=== PATIENT | female | born 1975 | race Caucasian/White ===

== ENCOUNTER 2019-04-29 09:20 | Emergency (ER) | payer OTHER ==
--- OUTSIDE RECORDS SUMMARY | 2019-04-29 09:26 | XMS REPORT | Summary of Care ---
:1975 Author Organization [facility] Address [address] [facility] [place] [address] Care Team Providers Name Role Phone Ezequiel Montanez MD Primary Care Provider Reason for Referral MRI/CAT/PET Scan (Routine) Status Reason Specialty Diagnoses / Referred By Referred To Procedures Contact Contact Pending Review Diagnoses Pelvic joint pain, right [place] Stone, Procedures US PELVIC COMPLETE WITH EV PROBE STONE DECORATOR [address] [id number] Reason for Visit Reason Comments Hip Pain pt states pain in right hip on and off for a year with some lower abd pain. also states lump in right side groing area for 1 week Encounter Details Date Type Department Care Team Description 04/14/2019 Office Visit [facility] Marcum, Pelvic joint pain, right (Primary Dx); Practice STONE DECORATOR Other migraine without status migrainosus, not intractable [address] [place] [address] [phone] Allergies Active Allergy Reactions Severity Noted Date Comments Bee Sting Swelling 07/02/2017 Sulfa Antibiotics GI Reaction 03/12/2015 documented as of this encounter (statuses as of 04/14/2019) Medications Medication Sig Dispensed Refills Start Date End Date Status ibuprofen (MOTRIN) Take 600 mg 0 Active 600 MG Oral Tab by mouth EVERY SIX HOURS NEEDED. ALPRAZolam (XANAX) Take 1 Tab 30 Tab 0 02/13/2019 Active 0.25 MG Oral by mouth TabIndications: THREE TIMES Panic attacks DAILY NEEDED (panic and anxiety). cyclobenzaprine Take 1 Tab 30 Tab 1 03/04/2019 Active (FLEXERIL) 10 MG by mouth Oral TabIndications: THREE TIMES Left-sided thoracic DAILY back pain, NEEDED unspecified (pain). chronicity sumatriptan Take 1 Tab 18 Tab 0 04/14/2019 Active (IMITREX) 100 MG by mouth Oral TabIndications: TWO TIMES Other migraine DAILY without status NEEDED migrainosus, not (headache). intractable esomeprazole Take 40 mg 0 Discontinued magnesium (NEXIUM) by mouth 9 40 MG Oral CAPSULE DAILY DELAYED RELEASE NEEDED. sumatriptan Take 1 Tab 18 Tab 5 06/28/2018 Discontinued (IMITREX) 100 MG by mouth 9 (Reorder) Oral Tab TWO TIMES DAILY NEEDED (headache). Lorcaserin HCl ER Take 1 Tab 30 Tab 4 02/13/2019 Discontinued (BELVIQ XR) 20 MG by mouth 9 Oral TABLET SR 24 DAILY. Max HRIndications: BMI Daily 28.0-28.9,adult Amount: 1 Tab. documented as of this encounter (statuses as of 04/14/2019) Active Problems Problem Noted Date BMI 29.0-29.9,adult 06/09/2016 History of tobacco use 12/25/2008 Overview: Quit apr 2013 Panic attacks documented as of this encounter (statuses as of 04/14/2019) Resolved Problems Problem Noted Date Resolved Date Anxiety 06/20/2013 documented as of this encounter (statuses as of 04/14/2019) Immunizations Name Administration Dates Next Due Influenza (IM) Preservative Free 06/28/2018 Influenza (IM) W/Pres 08/17/2017 Varicella Vaccine Live 06/20/2013 documented as of this encounter Social History Tobacco Use Types Packs/Day Years Used Date Current Every Day Smoker Cigarettes 0.25 5 Quit: 02/27/2014 Smokeless Tobacco: Never Used Alcohol Use Drinks/Week oz/Week Comments No occasionally Sex Assigned at Date Recorded Not on file Job Start Date Occupation Industry Not on file Not on file Not on file Travel History Travel Start Travel End No recent travel history available. documented as of this encounter Last Filed Vital Signs Vital Sign Reading Time Taken Comments Blood Pressure 124/78 04/14/2019 10:47 AM EDT Pulse 87 04/14/2019 10:47 AM EDT Temperature 36.7 04/14/2019 10:47 AM EDT C (98.1 F) Respiratory Rate - - Oxygen Saturation 98% 04/14/2019 10:47 AM EDT Inhaled Oxygen Concentration - - Weight 73.5 kg (162 lb) 04/14/2019 10:47 AM EDT Height 160 cm (5' 3") 04/14/2019 10:47 AM EDT Body Mass Index 28.7 04/14/2019 10:47 AM EDT documented in this encounter Patient Instructions Patient InstructionsShawnee Stone FNP - 04/14/2019 10:40 AM EDTMoist heat to groin may help Ibuprofen up to 3 pills 3 times a day with food for pain Schedule ultrasound Labs and xray today Follow up pending reportsElectronically signed by Shawnee Stone FNP at 2018 11:11 AM EDT documented in this encounter Progress Notes Shaw[place] Stone FNP - 04/14/2019 10:40 AM EDT PATIENT: Iona Angel : 1975 DATE OF SERVICE: 04/14/2019 CHIEF COMPLAINT: Chief Complaint Patient presents with Hip Pain pt states pain in right hip on and off for a year with some lower abd pain. also states lump in right side groing area for 1 week Subjective HISTORY OF PRESENT ILLNESS: Iona Angel is a 44-y.o. female. HPI Mass in right groin/labia area for past week - smaller now but still painful. LBP is ongoing but nowhaving more groin pain that radiates down right leg. 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 cyclobenzaprine (FLEXERIL) 10 MG Oral Tab Take 1 Tab by mouth THREE TIMES DAILY NEEDED (pain). ibuprofen (MOTRIN) 600 MG Oral Tab Take 600 mg by mouth EVERY SIX HOURS NEEDED. sumatriptan (IMITREX) 100 MG Oral Tab Take 1 Tab by mouth TWO TIMES DAILY NEEDED (headache). No current facility-administered medications for this visit. Allergies Allergen Reactions Bee Sting Swelling Sulfa Antibiotics GI Reaction Social History Socioeconomic History Marital status: Spouse name: Not on file Number of children: Not on file Years of education: Not on file Highest education level: Not on file Occupational History Not on file Social Needs Financial resource strain: Not on file Food insecurity: Worry: Not on file Inability: Not on file Transportation needs: Medical: Not on file Non-medical: Not on file Tobacco Use Smoking status: Current Every Day Smoker Packs/day: 0.25 Years: 5.00 Pack years: 1.25 Types: Cigarettes Last attempt to quit: 02/27/2014 Years since quittin.1 Smokeless tobacco: Never Used Substance and Sexual Activity Alcohol use: No Comment: occasionally Drug use: No Sexual activity: Yes Partners: Male control/protection: Other Lifestyle Physical activity: Days per week: Not on file Minutes per session: Not on file Stress: Not on file Relationships Social connections: Talks on phone: Not on file Gets together: Not on file Attends holiness service: Not on file Active member of club or organization: Not on file Attends meetings of clubs or organizations: Not on file Relationship status: Not on file Intimate partner violence: Fear of current or ex partner: Not on file Emotionally abused: Not on file Physically abused: Not on file Forced sexual activity: Not on file Other Topics Concern Back Care Not Asked Bike Helmet Not Asked Blood Transfusions Not Asked Caffeine Concern Yes Comment: 18 oz coffee/day Exercise Not Asked Hobby Hazards Not Asked International Travel Not Asked Service Not Asked Occupational Exposure Not Asked Seat Belt Not Asked Self-Exams Not Asked Sleep Concern Not Asked Special Diet Not Asked Stress Concern Not Asked Weight Concern Not Asked Social History Narrative . No children. Works at [employer]. REVIEW OF SYSTEMS: Review of Systems Constitutional: Negative for chills, fever and malaise/fatigue. Gastrointestinal: Negative for constipation, diarrhea, nausea and vomiting. Musculoskeletal: Positive for joint pain and myalgias. Negative for falls. Skin: Negative for rash. Neurological: Negative for tingling, weakness and headaches. Objective PHYSICAL EXAM: VITALS: BP 124/78 (BP Location: Left arm, Patient Position: Sitting) | Pulse 87 | Temp 98.1 F(36.7 C) | Ht 5' 3" (1.6 m) | Wt 162 lb (73.5 kg) | SpO2 98% | BMI 28.70 kg/m Body massindex is 28.7 kg/m. Physical Exam Constitutional: She is oriented to person, place, and time. Vital signs are normal. She appears well-developed and well-nourished. HENT: Head: Normocephalic and atraumatic. Eyes: Pupils are equal, round, and reactive to light. Neck: Normal range of motion. Cardiovascular: Pulses: Dorsalis pedis pulses are 2+ on the right side, and 2+ on the left side. Posterior tibial pulses are 2+ on the right side, and 2+ on the left side. Abdominal: Genitourinary: Lymphadenopathy: She has no axillary adenopathy. Neurological: She is alert and oriented to person, place, and time. No cranial nerve deficit or sensory deficit. Slight right limp due to leg pain Skin: Skin is warm and dry. Capillary refill takes less than 2 seconds. No ecchymosis and no rash noted. No erythema. Vitals reviewed. ASSESSMENT / IMPRESSION: ICD-9-CM ICD-10-CM 1. Pelvic joint pain, right 719.45 M25.551 XR HIP 2 VIEWS UNILAT W/PELVIS LEFT CBC WITH DIFFERENTIAL US PELVIC COMPLETE WITH EV PROBE XR HIP 2 VIEWS UNILAT W/PELVIS RIGHT 2. Other migraine without status migrainosus, not intractable 346.80 G43.809 sumatriptan (IMITREX) 100 MG Oral Tab Plan Moist heat to groin may help Ibuprofen up to 3 pills 3 times a day with food for pain Schedule ultrasound Labs and xray today Follow up pending reports Author: GAIL Rubin 04/14/2019 11:26 documented in this encounter Plan of Treatment Date Type Specialty Care Team Description 04/15/2019 Ancillary Procedure Radiology 05/22/2019 Office Visit [facility] Debbie Sheehan FNP [address] [place] [address] [phone] Name Type Priority Associated Diagnoses Date/Time CBC WITH DIFFERENTIAL Lab Routine Pelvic joint pain, 04/14/2019 11:29 AM right EDT XR HIP 2 VIEWS UNILAT Imaging Routine Pelvic joint pain, 04/14/2019 11:36 AM W/PELVIS RIGHT right EDT Name Type Priority Associated Diagnoses Order Schedule XR HIP 2 VIEWS UNILAT Imaging Routine Pelvic joint pain, Expected: 2018, W/PELVIS LEFT right Expires: 04/13/2020 CBC WITH DIFFERENTIAL Lab Routine Pelvic joint pain, Expected: 04/14/2019 right (Approximate), Expires: 10/11/2019 US PELVIC COMPLETE WITH Imaging Routine Pelvic joint pain, 1 Occurrences starting EV PROBE right 04/14/2019 until 04/13/2020 XR HIP 2 VIEWS UNILAT Imaging Routine Pelvic joint pain, Expected: 2018, W/PELVIS RIGHT right Expires: 04/13/2020 Health Maintenance Due Date Last Done Comments PNEUMOCOCCAL 0-64 YRS (1 of 1 01/25/1982 - PPSV23) MAMMOGRAM (SCREENING) 2016 INFLUENZA VACCINE (#1) 2019 06/28/2018, 08/17/2017 DIABETES SCREENING 06/28/2019 06/28/2018 DEPRESSION SCREENING 02/14/2020 02/13/2019 PAP SMEAR 06/28/2021 06/28/2018, 01/28/2016, 04/15/2011 LIPID DISORDER SCREENING 06/28/2023 06/28/2018, 09/15/2011, 12/25/2008 HPV IMMUNIZATION SERIES Aged Out No longer eligible based on patient's age to complete this topic MENINGOCOCCAL VACCINE IMM Aged Out No longer eligible based on patient's age to complete this topic documented as of this encounter Results Not on filedocumented in this encounter Visit Diagnoses Diagnosis Pelvic joint pain, right - Primary Other migraine without status migrainosus, not intractable documented in this encounter Insurance Payer Benefit Plan / Subscriber ID Effective Dates Phone Address Type Group [employer]CIAL [employer] [facility] xxxxxxxxxx 2016-Present [employer] (Work) [id number] documented as of this encounter
[2019-04-29 09:44] VITALS: BP 138/97
--- NOTE | 2019-04-29 09:58 | UC ---
Lower Extremity/Ankle HPI - HPI Summary HPI Summary: 44 yo female presents with RIGHT 4th toe pain. She tells me that this morning she dropped a vinegar bottle on her toe. She was wearing shoes. Has had pain since that time and she is concerned for fracture. Pain worse with weight bearing. She took ibuprofen around 0530 which helped a little. - History of Current Complaint Chief Complaint: UCLowerExtremity Stated Complaint: TOE INJURY Time Seen by Provider: 04/29/19 09:58 Hx Obtained From: Patient Hx Last Menstrual Period: 04/07/19 Onset/Duration: Sudden Onset Severity Initially: Moderate Severity Currently: Moderate Pain Intensity: 8 Pain Scale Used: 0-10 Numeric - Allergies/Home Medications Allergies/Adverse Reactions: Allergies Allergy/AdvReac Type Severity Reaction Status Date / Time bee pollen Allergy Anaphylatic Verified 04/29/19 09:37 Shock Sulfa (Sulfonamide Allergy GI Upset Verified 04/29/19 09:52 Antibiotics) PMH/Surg Hx/FS Hx/Imm Hx - Additional Past Medical History Additional PMH: None - Surgical History Surgical History: Yes Surgery Procedure, Year, and Place: 2008 breast reduction. LAPAROSCOPY-. EGG RETREVAL WITH SEDATION. - Family History Known Family History: Positive: None Family History: denies cardio vascular issues in family loineage - Social History Occupation: Employed Full-time Lives: With Family Alcohol Use: Rare Substance Use Type: None Smoking Status (MU): Light Every Day Tobacco Smoker Type: Cigarettes Amount Used/How Often: <1 PPD X 10 YEARS ON AND OFF Have You Smoked in the Last Year: Yes When Did the Patient Quit Smoking/Using Tobacco: 10/27/13 - Immunization History Most Recent Influenza Vaccination: unsure Most Recent Tetanus Shot: 10/23/14 Most Recent Pneumonia Vaccination: never Review of Systems All Other Systems Reviewed And Are Negative: No Constitutional: Positive: Negative Skin: Positive: Negative Respiratory: Positive: Negative Cardiovascular: Positive: Negative Neurovascular: Positive: Negative Musculoskeletal: Positive: Other: - Right 4th toe pain Neurological: Positive: Negative Psychological: Positive: Negative Physical Exam - Summary Physical Exam Summary: GENERAL: NAD. WDWN. No pain distress. SKIN: No rashes, sores, lesions, or open wounds. CHEST: No accessory muscle use. Breathing comfortably and in no distress. CV: Pulses intact PT and DP. Cap refill <2seconds MSK: RIGHT foot: 4th toe TTP about entire toe. Decreased ROM due to pain. NTTP MT. No edema or obvious bony deformities. NEURO: Alert. Sensations intact and symmetric B/L LEs PSYCH: Age appropriate behavior. Triage Information Reviewed: Yes Vital Signs: Initial Vital Signs Temp 98.8 F 04/29/19 09:38 Pulse 73 04/29/19 09:38 Resp 18 04/29/19 09:38 BP 138/97 04/29/19 09:38 Pulse Ox 100 04/29/19 09:38 Vital Signs Reviewed: Yes Procedures - Sedation Patient Received Moderate/Deep Sedation with Procedure: No Diagnostics - Radiology toe Radiology Interpretation Completed By: Radiologist Summary of Radiographic Findings: IMPRESSION: Right fourth toe soft tissue swelling with no fracture. Lower Extremity Course/Dx - Course Course Of Treatment: Xr as above. Discussed results with pt. Advised to rest, ice, and elevate her foot to decrease pain. She was provided with a post-op shoe to use for comfort - Differential Dx/Diagnosis Provider Diagnosis: Toe contusion Discharge ED - Sign-Out/Discharge Documenting (check all that apply): Patient Departure All imaging exams completed and their final reports reviewed: No Studies - Discharge Plan Condition: Stable Disposition: HOME Patient Education Materials: Foot Contusion (ED) Referrals: Ezequiel Montanez MD [Primary Care Provider] - Additional Instructions: If you develop a fever, shortness of breath, chest pain, new or worsening symptoms - please call your PCP or go to the ED immediately. Your blood pressure was high at todays visit. Please see your primary provider within 4 weeks for recheck and re-evaluation. 1) The X-Ray of your toe/foot today did not show any broken bones 2) Please rest, elevate, and apply ice to your toe to decrease pain and swelling 3) Use the post-op shoe as needed for comfort - Billing Disposition and Condition Condition: STABLE Disposition: Home - Attestation Statements Provider Attestation: patient not seen by me I was available for consult chart reviewed diomedes
== END 2019-04-29 10:41 | disposition home or self-care (01) ==
LOC: UCEAST 09:20
DX: S90.121A Contusion of right lesser toe(s) without damage to nail, initial encounter (principal); W20.8XXA Other cause of strike by thrown, projected or falling object, initial encounter; Y92.010 Kitchen of single-family (private) house as the place of occurrence of the external cause; F17.210 Nicotine dependence, cigarettes, uncomplicated; Z88.2 Allergy status to sulfonamides
CPT/HCPCS: 99212; G0463